=== PATIENT | male | born 1960 | race Caucasian/White ===

== ENCOUNTER 2016-07-20 11:13 | Day surgery (SDC) | payer OTHER ==
[~2016-07-20] VITALS: Ht 182.9 cm; Wt 90.0 kg
[~2016-07-20 11:13] MED LIST: BUPIVACAINE/PF-EPI 0.25% 1:200K ONE; MULT-746 PO
[2016-07-20] MEDS ORDERED: MIDAZOLAM 1 MG/ML, 2ML ONE (11:20)
[2016-07-20] MEDS ORDERED: FENTANYL PF 250 MCG/5ML ONE (11:20)
[2016-07-20 11:45] VITALS: BP 152/84
[2016-07-20] MEDS ORDERED: LACTATED RINGERS 1,000 ML IV SCH (11:46)
[2016-07-20] MEDS ORDERED: ONDANSETRON 2MG/ML, 2ML ONE (12:52)
[2016-07-20] MEDS ORDERED: GLYCOPYRROLATE 0.2MG/1ML ONE (12:52)
[2016-07-20] MEDS ORDERED: ROCURONIUM 10 MG/ML ONE (12:52)
[2016-07-20] MEDS ORDERED: CEFAZOLIN 1,000 MG ONE (12:52)
[2016-07-20] MEDS ORDERED: NEOSTIGMINE 1 MG/ML, 10ML ONE (12:52)
[2016-07-20] MEDS ORDERED: KETOROLAC 30 MG/1 ML ONE (12:52)
[2016-07-20] MEDS ORDERED: LABETALOL 5MG/ML, 20ML ONE (12:52)
[2016-07-20] MEDS ORDERED: DEXAMETHASONE 4 MG/ML, 1ML ONE (12:52)
[2016-07-20] MEDS ORDERED: PROPOFOL 10 MG/ML, 20ML ONE (12:52)
[2016-07-20] MEDS ORDERED: PROMETHAZINE 25 MG/ML, 1ML IV PRN (13:30)
[2016-07-20] MEDS ORDERED: HYDROmorphone 1 MG/ML, 1ML IV PRN (13:30)
[2016-07-20] MEDS ORDERED: ACETAMINOPHEN 325 MG TABLET PO PRN (13:30)
[2016-07-20] MEDS ORDERED: OXYcodone 5 MG/5 ML ORAL.SOL UDC PO PRN (13:30)
[2016-07-20] MEDS ORDERED: ONDANSETRON 2MG/ML, 2ML IVPush PRN (13:30)
[2016-07-20] MEDS ORDERED: MEPERIDINE/PF 25MG/0.5ML IVPush PRN (13:30)
[2016-07-20] MEDS ORDERED: LABETALOL 5MG/ML, 20ML IV PRN (13:30)
[2016-07-20] MEDS ORDERED: ALBUTEROL/IPRATROPIUM 2.5MG/0.5MG, 3 ML NPPB PRN (13:30)
[2016-07-20] MEDS ORDERED: MIDAZOLAM 1 MG/ML, 2ML IV PRN (13:30)
[2016-07-20] MEDS ORDERED: hydrALAzine 20 MG/ML, 1ML IV PRN (13:30)
[2016-07-20] MEDS ORDERED: FENTANYL PF 100 MCG/2ML ONE ×2 (14:01→15:18)
[2016-07-20] MEDS ORDERED: HYDROmorphone 1 MG/ML, 1ML ONE (14:02)
[2016-07-20] MEDS ORDERED: OXYcodone 5 MG/5 ML ORAL.SOL UDC ONE (15:18)
[2016-07-20] MEDS ORDERED: ACETAMINOPHEN 650 MG/20.3 ML UDC ONE (15:18)
[2016-07-20] MEDS: FENTANYL PF 100 MCG/2ML IV PRN ×4 (15:20→15:35)
== END 2016-07-20 17:20 | disposition home or self-care (01) ==
LOC: OUT 11:13
PROVIDERS: ATTEND Surgery
DX: K40.20 Bilateral inguinal hernia, without obstruction or gangrene, not specified as recurrent (principal); D17.6 Benign lipomatous neoplasm of spermatic cord; K66.0 Peritoneal adhesions (postprocedural) (postinfection); I10 Essential (primary) hypertension; Z98.52 Vasectomy status; Z80.1 Family history of malignant neoplasm of trachea, bronchus and lung
CPT/HCPCS: 49650; C1781; J0690; J1100; J1170; J1885; J2250; J2405; J2704; J2710; J3010; J7120; S2900; J3490